=== PATIENT | female | born 1970 | race Caucasian/White ===

== ENCOUNTER → 2020-03-17 10:43 | Outpatient (CLI) | payer OTHER, SELFPAY ==
--- NOTE | 2020-03-17 10:49 | MRI_ITS ---
STUDY: MR PELVIS WITH T WITHOUT CONTRAST REASON FOR EXAM: Female, 49 years old. urethral diverticula, pelvic pain, leaking urine TECHNIQUE: Standardized fat and water weighted pulse sequences were obtained in all 3 orthogonal planes, pre-and post contrast administration. IV Dotarem 19ml was administered for the contrast portion of the examination. COMPARISON: None. FINDINGS: Normal urinary bladder. Normal visualized small intestine. Normal visualized colon. There is no pelvic fluid. There is no pelvic mass lesion or lymphadenopathy. Normal visualized pelvic arteries. Normal osseous structures. Normal abdominal wall. There are multiple cervical nabothian cysts present. Within the anterior left myometrium is a low T1 and T2 well-circumscribed lesion consistent with fibroid measuring 3.0 x 2.5 cm. Adjacent to the urethra anterior to the vaginal canal is a well-circumscribed high T2 cystic lesion measuring 2.4 cm in diameter with an inferior smaller outpouching measuring 9 mm causing mass effect upon the urethra and likely patient''s symptomology. MRI/Pelvis W/WO Contrast IMPRESSION: Findings consistent with likely urethral diverticula measuring 2.4 cm adjacent to the urethra with small 9 mm outpouching. Further characterization and evaluation may be obtained with contrast urine excretion on fluoroscopy is clinically warranted. Other considerations would be [place]''s gland cyst within this region. Electronically Signed: Maged Souza DO at 22:44 EDT , Service support ,
== END ==
PROVIDERS: Referring Provider Urology; Visit Provider Urology
DX: N36.1 Urethral diverticulum (principal)
CPT/HCPCS: 72197; A9575